=== PATIENT | female | born 1985 | race Caucasian/White ===

== ENCOUNTER → 2020-10-29 12:03 | Outpatient (CLI) | payer BC, SELFPAY ==
[2020-10-29 13:19] LABS: COVID19 -Nasal RAPID Negative (Negative)
== END ==
PROVIDERS: Visit Provider Physician Assistant
DX: Z20.822 Contact with and (suspected) exposure to COVID-19 (principal); J31.2 Chronic pharyngitis
CPT/HCPCS: 87070; 87635

== ENCOUNTER → 2021-11-14 15:51 | Outpatient (ROUT) | payer BC, SELFPAY ==
[2021-11-14 16:09] LABS: COVID19 -Nasal RAPID Negative (Negative)
== END ==
PROVIDERS: Visit Provider Family Medicine
DX: J06.9 Acute upper respiratory infection, unspecified (principal); Z20.822 Contact with and (suspected) exposure to COVID-19
CPT/HCPCS: 87635

== ENCOUNTER → 2022-09-04 16:48 | Outpatient (CLI) | payer BC, SELFPAY ==
--- NOTE | 2022-09-04 16:49 | DI.MG.S_ITS ---
BILATERAL DIGITAL SCREENING MAMMOGRAM 3D/2D WITH CAD: 09/04/2022 CLINICAL: Routine screening. Baseline exam. No prior exams were available for comparison. Both breasts are extremely dense, which lowers the sensitivity of mammography (category d />75% glandular tissue). Current study was also evaluated with a Computer Aided Detection (CAD) system. There is an oval focal asymmetry with an obscured margin in the right breast at 9 o'clock anterior depth. No other significant masses, calcifications, or other findings are seen in either breast. IMPRESSION: INCOMPLETE: NEEDS ADDITIONAL IMAGING EVALUATION The oval focal asymmetry in the right breast resembles a cyst and is indeterminate. Additional views with possible ultrasound are recommended. Based on Tyrer-Cuzick model (a risk assessment model), the patient's lifetime risk is 26.0% and her 10 year risk is 3.2%. If a patient has an elevated risk, a more comprehensive evaluation should be considered and/or a referral to a genetic counselor. The [place] [employer], [employer], and NCCN Guidelines advise the consideration of Breast MRI as an adjunct to screening mammography in patients whose Lifetime risk to develop breast cancer is 20% or higher. This exam was interpreted at Station ID: [id number]. NOTE: For mammograms, a report in lay terms will be sent to the patient. Approximately 15% of breast malignancies will not be visualized mammographically. In the management of a palpable breast mass, a negative mammogram must not discourage biopsy of a clinically suspicious lesion. Electronically Signed By: Tommy Segovia M.D. slc/:09/05/2022 09:00:35 letter sent: Additional Imaging Needed ACR BI-RADS Category 0: Incomplete 3340F
== END ==
PROVIDERS: Referring Provider Family Medicine; Visit Provider Family Medicine
DX: Z12.31 Encounter for screening mammogram for malignant neoplasm of breast (principal)
CPT/HCPCS: 77063; 77067

== ENCOUNTER → 2022-09-09 12:15 | Outpatient (CLI) | payer BC, SELFPAY ==
--- NOTE | 2022-09-09 | DI.US.S_ITS ---
PROCEDURE: US PELVIC COMPLETE INDICATIONS: Dysmenorrhea, unspecified TECHNIQUE: Real-time scanning was performed of the pelvic organs, with image documentation. Additional endovaginal scanning was necessary due to incomplete visualization of the adnexal and endometrial structures by transabdominal scanning. COMPARISON: None. FINDINGS: Uterus: Uterus is inverted and normal in size at 8.1 x 3.0 x 5.4 cm. The myometrium is homogeneous. The endometrium measures 3 mm combined thickness. Intrauterine device is seen in expected position within the endometrial canal. Ovaries: The right ovary measures 4.6 x 1.8 x 3.0 cm, with a calculated ovarian volume of 12.6 cc. The left ovary measures 2.4 x 1.9 x 1.6 cm, with a calculated ovarian volume of 3.8 cc. The ovaries have a normal sonographic appearance. Less than 12 follicles can be seen in each ovary. No adnexal masses are seen. A simple right ovarian cyst is seen measuring 3.1 x 1.5 x 2.1 cm. Other: No pathologic free abdominal or pelvic fluid. IMPRESSION: No significant sonographic abnormality. Intrauterine device is seen in expected position. Approved by: Paul Bobby M.D. on 09/09/2022 at 21:47
== END ==
PROVIDERS: PCP Family Medicine; Referring Provider Family Medicine; Visit Provider Family Medicine
DX: N94.6 Dysmenorrhea, unspecified (principal); N94.10 Unspecified dyspareunia; Z97.5 Presence of (intrauterine) contraceptive device
CPT/HCPCS: 76830; 76856; 93976

== ENCOUNTER → 2022-10-21 13:26 | Outpatient (CLI) | payer BC, SELFPAY ==
--- NOTE | 2022-10-21 | DI.US.S_ITS ---
ULTRASOUND OF RIGHT BREAST: 10/21/2022 CLINICAL: Patient returns today to evaluate a focal asymmetry in the right breast. Comparison is made to exams dated: 10/21/2022 mammogram and 09/04/2022 mammogram - [facility]. Color flow and real-time ultrasound of the right breast were performed. Schaeffer scale images of the real-time examination were reviewed. There is a 0.7 cm x 0.7 cm x 0.7 cm oval cyst with a septated internal wall in the right breast at 9 o'clock anterior depth 1 cm from the nipple. This oval cyst is hypoechoic. This correlates with mammography findings. Color flow imaging demonstrates that there is no vascularity present. There also is a 0.4 cm x 0.3 cm x 0.3 cm wider than tall oval cyst with a septated internal wall in the right breast at 11 o'clock middle depth 2 cm from the nipple. This oval cyst is hypoechoic. This correlates as an incidental finding. Color flow imaging demonstrates that there is no vascularity present. IMPRESSION: PROBABLY BENIGN The 0.7 cm x 0.7 cm x 0.7 cm oval cyst in the right breast at 9 o'clock anterior depth is consistent with a complicated cyst and is probably benign. The 0.4 cm x 0.3 cm x 0.3 cm wider than tall oval cyst in the right breast at 11 o'clock middle depth resembles a complicated cyst and is probably benign. A follow-up right ultrasound in 6 months is recommended to demonstrate stability. Additionally, patient has an elevated lifetime risk for breast cancer of greater than 20%. Recommend consideration for screening breast MRI as an adjunct to screening mammography. Findings and recommendations were conveyed to the patient during today's evaluation. This exam was interpreted at Station ID: [id number]. Electronically Signed By: James Craig M.D. aty/:10/21/2022 14:23:32 letter sent: Followup Recommended Ultrasound BI-RADS: 3 Probably benign
--- NOTE | 2022-10-21 | DI.MG.S_ITS ---
UNILATERAL RIGHT DIGITAL DIAGNOSTIC MAMMOGRAM 3D/2D WITH ADDITIONAL VIEWS: 10/21/2022 CLINICAL: Additional evaluation requested from prior study. Comparison is made to exam dated: 09/04/2022 mammogram - [facility]. The right breast is extremely dense, which lowers the sensitivity of mammography (category d />75% glandular tissue). Redemonstration of previously described 0.8 cm oval focal asymmetry with an obscured margin in the right breast at 9 o'clock anterior depth. This is seen in additional views. No other significant masses or calcifications are seen in the breast. IMPRESSION: INCOMPLETE: NEEDS ADDITIONAL IMAGING EVALUATION The 0.8 cm oval focal asymmetry in the right breast resembles a cyst and is indeterminate. An ultrasound is recommended for further evaluation and is scheduled to immediately follow this examination. Based on Tyrer-Cuzick model (a risk assessment model), the patient's lifetime risk is 26.0% and her 10 year risk is 3.2%. If a patient has an elevated risk, a more comprehensive evaluation should be considered and/or a referral to a genetic counselor. The [place] [employer], [employer], and NCCN Guidelines advise the consideration of Breast MRI as an adjunct to screening mammography in patients whose Lifetime risk to develop breast cancer is 20% or higher. This exam was interpreted at Station ID: [id number]. NOTE: For mammograms, a report in lay terms will be sent to the patient. Approximately 15% of breast malignancies will not be visualized mammographically. In the management of a palpable breast mass, a negative mammogram must not discourage biopsy of a clinically suspicious lesion. Electronically Signed By: James Craig M.D. aty/:10/21/2022 14:20:37 ACR BI-RADS Category 0: Incomplete 3340F
== END ==
PROVIDERS: PCP Family Medicine; Referring Provider Family Medicine; Visit Provider Family Medicine
DX: R92.8 Other abnormal and inconclusive findings on diagnostic imaging of breast (principal); N60.01 Solitary cyst of right breast
CPT/HCPCS: 76642; 77065; G0279

== ENCOUNTER → 2023-04-23 12:36 | Outpatient (CLI) | payer BC, SELFPAY ==
--- NOTE | 2023-04-23 | DI.US.S_ITS ---
ULTRASOUND OF RIGHT BREAST: 04/23/2023 CLINICAL: Patient returns today to evaluate two focal asymmetries in the right breast. Comparison is made to exams dated: 10/21/2022 ultrasound, 10/21/2022 mammogram, and 09/04/2022 mammogram - [facility]. Color flow and real-time ultrasound of the right breast were performed. Schaeffer scale images of the real-time examination were reviewed. There is a 0.8 cm x 0.6 cm x 0.8 cm oval cyst with a septated internal wall in the right breast at 9 o'clock anterior depth 1 cm from the nipple. This oval cyst is hypoechoic. This correlates with mammography findings. Color flow imaging demonstrates that there is no vascularity present. There also is a 0.2 cm x 0.3 cm x 0.3 cm wider than tall oval cyst with a septated internal wall in the right breast at 11 o'clock middle depth 2 cm from the nipple. This oval cyst is hypoechoic. This correlates as an incidental finding. Color flow imaging demonstrates that there is no vascularity present. IMPRESSION: PROBABLY BENIGN The 0.8 cm x 0.6 cm x 0.8 cm oval cyst in the right breast at 9 o'clock anterior depth may be a complicated cyst and is probably benign. The 0.2 cm x 0.3 cm x 0.3 cm wider than tall oval cyst in the right breast at 11 o'clock middle depth resembles a complicated cyst and is probably benign. A follow-up ultrasound in 6 months is recommended to demonstrate stability. Patient will be due for mammography. Consider also supplemental MRI screening for elevated lifetime risk. This exam was interpreted at Station ID: [id number]. Electronically Signed By: Aldo Price M.D. /:04/23/2023 13:15:44 letter sent: Followup Recommended Ultrasound BI-RADS: 3 Probably benign
== END ==
LOC: US 12:36
PROVIDERS: PCP Family Medicine; Referring Provider Family Medicine; Visit Provider Family Medicine
DX: R92.8 Other abnormal and inconclusive findings on diagnostic imaging of breast (principal); N60.01 Solitary cyst of right breast
CPT/HCPCS: 76642

== ENCOUNTER 2024-08-19 01:02 | Emergency (ER) | payer BC, SELFPAY ==
[2024-08-19 01:13] VITALS: BP 147/90; PULSE 78; RESP 22; TEMP 36.6; O2SAT 98; BMI 32.1
--- NOTE | 2024-08-19 01:15 | ED_ITS ---
HPI - Dizziness General Chief Complaint: Dizziness Stated Complaint: Vomiting, Nausea, Dizziness Time Seen by Provider: 08/19/24 01:13 History of Present Illness HPI Narrative: 39-year-old female without any significant past medical history comes into the ED from home for evaluation of dizziness lightheadedness, she states that earlier today she woke up to go to the restroom and started feeling like the room was spinning. States it is worse whenever she turns her head left to right, denies trauma or falls denies any syncopal or presyncopal symptoms denies any other symptoms such as headache visual disturbances chest pain shortness breath fever chills abdominal pain or any other GI/ symptoms. States that she has had multiple episode of nonbilious nonbloody emesis secondary to symptoms time of evaluation patient NIH of 0 no focal deficits Related Data Previous Rx's ?Medication ?Instructions ?Recorded benzonatate 100 mg capsule 100 mg PO BID-TID PRN cough #14 10/29/20 caps meclizine 25 mg tablet 25 mg PO BID PRN dizziness 1 week 08/19/24 #14 tabs Allergies Allergy/AdvReac Type Severity Reaction Status Date / Time No Known Drug Allergies Allergy Unverified 08/19/24 01:13 Review of Systems Review of Systems Narrative: General: Denies fever, chills, weight loss HEENT: Denies headache, eye drainage, eye irritation, head trauma, sore throat, voice change Cardiovascular: Denies any chest pain, palpitations, tachycardia Respiratory: Denies any shortness of breath, cough, wheeze, stridor GI/: Denies any abdominal pain, nausea, vomiting, diarrhea, bright red blood per rectum, melanotic stools, urinary frequency, urinary retention, dysuria, hematuria MSK: Denies any joint pain, muscle pains, swelling Skin: Denies any rashes, lesions, discoloration Neuro: Positive lightheadedness dizziness Denies any headache, fainting, weakness Psych: Denies SI/HI Patient History Social History Smoking Status: Never smoker Exam Narrative Exam Narrative: General: Cooperative, well-developed, not in acute distress HEENT: Normocephalic, atraumatic, PERRLA, normal sclera, eyelids normal Neck: Active full range of motion, atraumatic Chest: Normal to inspection, negative crepitus, no overlying erythema ecchymosis Respiratory: Normal respiratory effort, not in acute respiratory distress, clear to auscultation bilaterally negative cough, wheeze, tachypnea, rhonchi, rales Cardiology: Regular rate rhythm negative gallop, murmur, rubs GI/: No tenderness to palpation, soft, non rigid, normal to inspection, exam deferred MSK: Full active range of motion in all 4 extremities, atraumatic, no tenderness to palpation of any bony prominences Skin: No rashes or lesions noted Neuro: NIH of 0, no focal deficits Alert awake oriented x3, moves all 4 extremities spontaneously, cranial nerves intact, able to answer all questions appropriately follows commands appropriately Psych: Cooperative, negative suicidal or homicidal ideations Initial Vital Signs Initial Vital Signs: Vital Signs Temperature 98 F 08/19/24 01:13 Pulse Rate 78 08/19/24 01:13 Respiratory Rate 22 08/19/24 01:13 Blood Pressure 147/90 H 08/19/24 01:13 Pulse Oximetry 98 08/19/24 01:13 Oxygen Delivery Method Room Air 08/19/24 01:13 Course Orders Ordered: ED Orders 08/19/24 01:15 CT angio head and neck Stat 08/19/24 01:16 XR chest 1V Stat EKG-12 Lead Stat 08/19/24 01:17 CT head/brain wo con Stat 08/19/24 01:35 Complete Blood Count AUTO DIFF Stat Comprehensive Metabolic Panel Stat Lipase Stat MAG [Magnesium] Stat Troponin & CK Cardiac Panel Stat Discontinued Medications Diphenhydramine HCl (Diphenhydramine 50 Mg/Ml Vial) 25 mg IV NOW ONE Stop: 08/19/24 01:16 Last Admin: 08/19/24 01:44 Dose: 25 mg Documented By: MARLINE Sodium Chloride (Normal Saline 0.9%) 1,000 mls @ 1,000 mls/hr IV BOLUS ONE Stop: 08/19/24 02:14 Last Infusion: 08/19/24 03:15 Dose: Infused Documented By: Admin: 08/19/24 01:44 Dose: 1,000 mls/hr Documented By: MARLINE Metoclopramide HCl (Metoclopramide 10 Mg/2 Ml Inj) 10 mg IV NOW ONE Stop: 08/19/24 01:16 Last Admin: 08/19/24 01:44 Dose: 10 mg Documented By: MARLINE Vital Signs Vital signs: Vital Signs - 8 hr 08/19/24 01:13 08/19/24 02:17 08/19/24 03:21 Temperature 98 F Pulse Rate 78 72 74 Respiratory Rate 22 20 18 Blood Pressure 147/90 H 150/88 H 156/94 H Pulse Oximetry 98 98 100 Oxygen Delivery Method Room Air MDM - Dizziness Lab Data 08/19/24 01:35 08/19/24 01:35 Labs: Lab Results 08/19/24 Range/Units 01:35 WBC 8.1 (4.5-11.0) X10^3/uL RBC 4.82 (4.0-5.2) X10^6/uL Hgb 15.0 (12.0-16.0) g/dL Hct 43.2 (36-46) % MCV 89.6 (80-100) fL MCH 31.1 (26-34) PG MCHC 34.7 (30-36) % RDW 13.5 (11.6-14.8) % Plt Count 218 (150-400) X10^3/uL Neut % (Auto) 58.0 (50-75) % Lymph % (Auto) 33.2 (25-40) % Cloud % (Auto) 6.8 (3-14) % Eos % (Auto) 1.1 L (2-4) % Baso % (Auto) 0.9 (0-2) % Neut # (Auto) 4700 (8984-7611) /uL Lymph # (Auto) 2700 (2040-7630) /uL Cloud # (Auto) 600 (0-900) /uL Eos # (Auto) 100 (0-450) /uL Baso # (Auto) 100 (0-100) /uL Sodium 139 (137-145) mmol/L Potassium 3.7 (3.4-5.1) mmol/L Chloride 106 (98-107) mmol/L Carbon Dioxide 24 (22-32) mmol/L BUN 13 (7-17) mg/dL Creatinine 0.79 (0.52-1.04) mg/dL Estimated GFR > 60 (>60) mL/min BUN/Creatinine Ratio 16.5 (6-22) Glucose 146 H (70-99) mg/dL Calcium 9.0 (8.4-10.2) mg/dL Magnesium 1.8 (1.6-2.3) mg/dL Total Bilirubin 0.6 (0.2-1.3) mg/dL AST 28 (14-36) IU/L ALT 47 H (<35) IU/L Alkaline Phosphatase 81 (38-126) U/L Total Creatine Kinase 59 (30-135) U/L Troponin I < 0.012 (0.01-0.034) ng/mL Total Protein 7.2 (6.3-8.2) g/dL Albumin 4.3 (3.5-5.0) g/dL Globulin 2.9 (1.7-4.1) g/dL Albumin/Globulin Ratio 1.5 (1.0-2.8) Lipase 55 (23-300) U/L Imaging Data CT scan - head: Radiologist's Impression: Preliminary read showing no acute intracranial abnormality Chest x-ray: Radiologist's Impression: Preliminary read showing no acute cardiopulmonary abnormality CTA - brain/neck: Radiologist's Impression: Preliminary read showing normal CTA of the neck ECG Data Interpretation: EKG interpreted ED physician sinus 80 beats per minute QTC 461 no STEMI MDM Narrative Medical decision making narrative: Patient is a 39-year-old female without any significant past medical history who presents for lightheaded dizziness, she states that she woke up to use the restroom and started feeling dizzy, no syncopal or presyncopal symptoms, she states that her symptoms are worse when she turns her head, she denies any trauma or falls not on any blood thinners NIH of 0 at time of evaluation, patient states that she has multiple episodes of nonbilious nonbloody emesis secondary to symptoms. Denies any other traumas at this time. EKG nonischemic in nature, lab work unremarkable. CT scan unremarkable was more likely secondary to peripheral vertigo 0315: Patient re-evaluated, she was able to ambulate by herself to the bathroom here, informed her that we are still awaiting imaging results, she verbalized understanding of this and agrees to the waning, she states that her symptoms have almost completely resolved after administration medication here in the emergency department. 0333: Patient informed of negative imaging, she states that she feels significantly better and feels safe going home, patient will be discharged home with meclizine instructed follow up with PCP and ENT in outpatient setting she verbalized understanding of this and agrees to being discharged home with outpatient follow up Discharge Plan Departure Patient Disposition: Home Clinical Impression: Vertigo Instructions: DI for Vertigo Activity Restrictions/Additional Instructions: Please follow up with your primary care doctor and otolaryngology in outpatient setting Please read the discharge instructions sheet carefully and bring all papers to all doctor follow-up visits, as it may contain information that your doctor may want to see. Disease processes change and evolve, if your symptoms worsen or if you develop any new symptoms that are concerning to you please return for evaluation. Your evaluation today does not show any evidence of any life- threatening/serious illnesses requiring admission to the hospital or surgery. Please follow-up with your doctor for re-evaluation in approximately 1 day. Seek immediate medical attention for any worrisome symptoms. *If you do not have a primary care provider please contact the [facility] Resource line at [phone]. They will ask some questions about your medical history and help get you set up with a doctor in the community. Prescriptions: New meclizine 25 mg tablet 25 mg PO BID PRN (Reason: dizziness) 7 Days Qty: 14 0RF No Action benzonatate 100 mg capsule 100 mg PO BID-TID PRN (Reason: cough) Qty: 14 0RF Referrals: Waldo Ramirez MD [Physician, Ear, Nose, Throat] Melvi Butts MD [Primary Care Provider, Family Practice] Stand Alone Forms: Patient Portal/API
--- NOTE | 2024-08-19 01:15 | DI.CT.S_ITS ---
PROCEDURE: CT ANGIO HEAD AND NECK INDICATIONS: dizziness TECHNIQUE: After the administration of intravenous contrast, 1 mm thick sections acquired from the aortic arch through the [place] [employer] [place]. 3-dimensional npjehgj-dzjpsxkem-onfndhziyw (MIP) and/or volume rendering reformats were acquired of the central intracranial vasculature and neck separately. For radiation dose reduction, the following was used: automated exposure control, adjustment of mA and/or kV according to patient size. COMPARISON: None. FINDINGS: Image quality: Diagnostic HEAD ANGIOGRAPHY: Anterior circulation: ICAs: Mild focal narrowing without significant calcifications in the distal right cavernous ICA ACAs: Patent MCAs: Patent AComm: No aneurysm Venous sinuses: patent Posterior circulation: Dominance: Equal Vertebral arteries: Patent Basilar artery: Patent PComms: No aneurysm museum informatics specialist: Patent NECK ANGIOGRAPHY: Aortic arch and subclavian arteries: Patent CCAs: No stenosis, occlusion, or aneurysm. ICA origins (by NASCET criteria): No hemodynamically significant narrowing. ICAs: Patent ECAs: Origins are patent. Vertebral arteries: Patent Soft tissues: No significant mass, aneurysm, or lymphadenopathy Lung apices: No pneumothorax Bones: No acute or suspicious abnormality. IMPRESSION: No large vessel occlusion or high-grade stenosis. Mild focal narrowing without significant calcifications in the distal right cavernous ICA. If there is further concern, consider brain MRI. No significant discrepancy from the preliminary report. Any quantitative measurements of stenosis were performed using NASCET criteria. Dictated by: Aldo Price M.D. on 08/19/2024 at 8:25 Approved by: Aldo Price M.D. on 08/19/2024 at 8:30
--- NOTE | 2024-08-19 01:16 | DI.RAD.S_ITS ---
PROCEDURE: XR CHEST 1V INDICATIONS: dizziness TECHNIQUE: One view of the chest was acquired. COMPARISON: None. FINDINGS AND IMPRESSION: No dense consolidation or pleural effusion on this single view study. Normal heart size. Unremarkable osseous structures. No significant changes from the preliminary report. Dictated by: Aldo Price M.D. on 08/19/2024 at 8:22 Approved by: Aldo Price M.D. on 08/19/2024 at 8:23
--- NOTE | 2024-08-19 01:17 | DI.CT.S_ITS ---
PROCEDURE: CT HEAD/BRAIN WO CON INDICATIONS: dizziness TECHNIQUE: Noncontrast 4.5 mm thick angled axial sections acquired from the foramen magnum to the vertex, with coronal and sagittal reformats. For radiation dose reduction, the following was used: automated exposure control, adjustment of mA and/or kV according to patient size. COMPARISON: None. FINDINGS: Image quality: Diagnostic CSF spaces: Basal cisterns are patent. Lateral ventricles are symmetric. Volume: Mild volume loss, slightly greater than expected for age. Brain: No acute hemorrhage. No gross loss of diamond-white differentiation Craniofacial structures: No significant paranasal sinus opacity. Left frontal scalp dermal lesion with a small internal density measuring 1 cm. Correlate with clinical exam. IMPRESSION: No acute intracranial abnormality. If there is high concern for parenchymal pathology, consider further evaluation with MRI. No significant changes from the preliminary report. Dictated by: Aldo Price M.D. on 08/19/2024 at 8:23 Approved by: Aldo Price M.D. on 08/19/2024 at 8:25
[2024-08-19] MEDS: METOCLOPRAMIDE 10 MG/2 ML INJ IV (01:44)
[2024-08-19] MEDS: diphenhydrAMINE 50 MG/ML VIAL 25 MG IV (01:44)
[2024-08-19] MEDS: SODIUM CHLORIDE 0.9% 1,000 ML 1000 ML IV (01:44)
[2024-08-19 01:49] LABS: Add Manual Diff / Slide Review NO; Basophils Absolute Auto 100 /uL (0-100); Basophils Percent Auto 0.9 % (0-2); Eosinophils Absolute Auto 100 /uL (0-450); Eosinophils Percent Auto 1.1 % (2-4); Hematocrit 43.2 % (36-46); Lymphocytes Absolute Auto 2700 /uL (1100-4500); Lymphocytes Percent Auto 33.2 % (25-40); Mean Corpuscular HGB Conc 34.7 % (30-36); Mean Corpuscular Hemoglobin 31.1 PG (26-34); Mean Corpuscular Volume 89.6 fL (80-100); Monocytes Absolute Auto 600 /uL (0-900); Monocytes Percent Auto 6.8 % (3-14); Neutrophils Absolute Auto 4700 /uL (1500-7000); Platelet Count 218 X10^3/uL (150-400); Red Blood Cell Count 4.82 X10^6/uL (4.0-5.2); Red Cell Distribution Width 13.5 % (11.6-14.8); White Blood Cell Count 8.1 X10^3/uL (4.5-11.0)
--- NOTE | 2024-08-19 01:55 | EKG_ITS ---
[address] [address] Test Date: 2024-08-19 Pat Name: Martha Bello Department: Room: Gender: Female [employer]: DOMINICK : 1985 Requested By: Order Number: [id number] Reading MD: Jose David Pichardo MD Measurements Intervals [place] Rate: 80 P: 42 [place]: 190 QRS: 26 QRSD: 84 T: 45 QT: 400 QTc: 461 Interpretive Statements Normal sinus rhythm Electronically Signed On 08-19-2024 11:08:22 PDT by Jose David Pichardo MD
[2024-08-19 01:58] LABS: Alanine Aminotransferase 47 IU/L (<35); Albumin 4.3 g/dL (3.5-5.0); Albumin Globulin Ratio 1.5 (1.0-2.8); Alkaline Phosphatase 81 U/L (38-126); Aspartate Aminotransferase 28 IU/L (14-36); BUN Creatinine Ratio 16.5 (6-22); Bilirubin Total 0.6 mg/dL (0.2-1.3); Blood Urea Nitrogen 13 mg/dL (7-17); Carbon Dioxide 24 mmol/L (22-32); Chloride 106 mmol/L (98-107); Creatine Kinase 59 U/L (30-135); Estimated Glomerular Filt Rate > 60 mL/min (>60); Globulin 2.9 g/dL (1.7-4.1); Glucose 146 mg/dL (70-99); HEMOLYSIS 24 (0-50); Lipase 55 U/L (23-300); Potassium 3.7 mmol/L (3.4-5.1); Sodium 139 mmol/L (137-145); Total Protein 7.2 g/dL (6.3-8.2)
[2024-08-19 01:59] LABS: Magnesium 1.8 mg/dL (1.6-2.3)
[2024-08-19 02:10] LABS: Troponin I < 0.012 ng/mL (0.01-0.034)
[2024-08-19 02:17] VITALS: BP 150/88; PULSE 72; RESP 20; O2SAT 98
--- NOTE | 2024-08-19 03:17 | PC.NURSE ---
pt ambulatory to bathroom, states mild nausea but most of the dizziness is gone
[2024-08-19 03:21] VITALS: BP 156/94; PULSE 74; RESP 18; O2SAT 100
== END 2024-08-19 03:49 | disposition home or self-care (01) ==
PROVIDERS: Emergency Provider Student in an Organized Health Care Education/Training Program; PCP Family Medicine
DX: R42 Dizziness and giddiness (principal)
CPT/HCPCS: 36415; 70450; 70496; 70498; 71045; 80053; 82550; 83690; 83735; 84484; 85025; 93005; 93010; 96361; 96374; 96375; 99284; J1200; J2765; Q9967